=== PATIENT | male | born 1985 | race African-American/Black ===

== ENCOUNTER 2019-05-15 16:05 | Emergency (ER) | payer OTHER ==
[2019-05-15] MEDS ORDERED: Diphtheria,Pertussis(Acell),Tetanus Vaccine 0.5 ML Syringe IM ONE (16:14)
[2019-05-15] MEDS ORDERED: Bacitracin Oint 1 GM U/D Packet TOP ONE (16:14)
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
== END 2019-05-15 17:27 | disposition home or self-care (01) ==
LOC: MW.ED 16:05
DX: S40.212A Abrasion of left shoulder, initial encounter (principal); S90.512A Abrasion, left ankle, initial encounter; Z23 Encounter for immunization; V49.49XA Driver injured in collision with other motor vehicles in traffic accident, initial encounter
CPT/HCPCS: 71045; 71045-26; 72100; 72100-26; 72170; 72170-26; 73030-26-LT; 73030-LT; 73610-26-LT; 73610-LT; 90471; 90715; 99284-25

== ENCOUNTER 2022-12-15 00:12 | Emergency (ER) | payer OTHER, SELFPAY ==
[2022-12-15 00:59] LABS: CARBON DIOXIDE,CO2 27.5 mmol/L (21.0-32.0); POTASSIUM,K 3.4 mmol/L (3.5-5.1)
[2022-12-15] MEDS ORDERED: Iopamidol 755 MG/ML 500 ML Multipack Bottle IVPUSH ONE (01:12)
[2022-12-15] MEDS: Morphine 4 MG/ML Syringe IVPUSH ONE ×2 (02:29→02:31)
== END 2022-12-15 03:38 ==
LOC: MW.ED 00:12
DX: F10.129 Alcohol abuse with intoxication, unspecified (principal); Y90.8 Blood alcohol level of 240 mg/100 ml or more; V89.2XXA Person injured in unspecified motor-vehicle accident, traffic, initial encounter
CPT/HCPCS: 36415; 70450; 71260; 72125; 72128; 72131; 74177; 80053; 80305; 80307; 81003; 83605; 83690; 83735; 84484; 85025; 93005; 99284; Q9967; 93010; J2270

== ENCOUNTER 2022-12-15 04:32 | Emergency (ER) | payer SELFPAY | END 2022-12-15 04:43 | LOC: MW.ED 04:32 | DX: I10 Essential (primary) hypertension (principal) | CPT/HCPCS: 99283 ==

== ENCOUNTER 2023-12-16 19:37 | Emergency (ER) | payer BC ==
[2023-12-16 20:26] LABS: BASOPHILS ABSOLUTE AUTO 0.02 K/uL (0.00-0.20); BASOPHILS PERCENT AUTO 0.3 % (0.0-1.0); EOSINOPHILS ABSOLUTE AUTO 0.19 K/uL (0.00-0.45); EOSINOPHILS PERCENT AUTO 2.6 % (0.0-6.0); HEMATOCRIT 47.9 % (42.0-52.0); HEMOGLOBIN 16.2 g/dL (14.0-18.0); IMMATURE GRAN ABSOLUTE AUTO 0.02 K/uL (0.00-0.05); IMMATURE GRAN PERCENT AUTO 0.3 % (0.0-0.4); LYMPHOCYTES PERCENT AUTO 47.4 % (24.0-44.0); MEAN CORPUSCULAR HEMOGLOBIN 29.9 pg (28.0-32.0); MEAN CORPUSCULAR HGB CONC 33.8 g/dL (32.0-36.0); MEAN CORPUSCULAR VOLUME 88.4 fL (83.0-99.0); MEAN PLATELET VOLUME 10.5 fL (9.4-12.4); MONOCYTES ABSOLUTE AUTO 0.69 K/uL (0.00-0.80); MONOCYTES PERCENT AUTO 9.3 % (0.0-8.0); NEUTROPHILS ABSOLUTE AUTO 2.96 K/uL (1.80-7.70); NEUTROPHILS PERCENT AUTO 40.1 % (41.0-71.0); PLATELET COUNT,PLT 226 K/uL (150-400); RED BLOOD CELL COUNT 5.42 M/uL (4.52-5.90); WHITE BLOOD CELL COUNT,WBC 7.38 K/uL (3.9-11.3)
[2023-12-16 20:39] LABS: CALCIUM 9.7 mg/dL (8.5-10.1); CARBON DIOXIDE,CO2 30.1 mmol/L (21.0-32.0); CREATININE 1.1 mg/dL (0.8-1.3); EST CRCL DRUG DOSING (CG) 107.76 mL/min; POTASSIUM,K 3.6 mmol/L (3.5-5.1)
[2023-12-16] MEDS ORDERED: Aspirin 81 MG Tab.Chew PO ONE (20:42)
[2023-12-16] MEDS ORDERED: Enoxaparin 150 MG/1 ML Syringe SUBCUT ONE (22:31)
[2023-12-17] MEDS ORDERED: Morphine 4 MG/ML Syringe IVPUSH ONE (00:26)
== END 2023-12-17 01:50 ==
LOC: MW.ED 19:37
DX: I24.9 Acute ischemic heart disease, unspecified (principal)
CPT/HCPCS: 36415; 71045; 80048; 84484; 85025; 93005; 96372; 96374; 99285; A9270; J1650; J2270; 93010

== ENCOUNTER 2025-05-09 23:08 | Emergency (ER) | payer BC ==
[2025-05-09 23:34] LABS: BASOPHILS ABSOLUTE AUTO 0.02 K/uL (0.00-0.20); BASOPHILS PERCENT AUTO 0.3 % (0.0-1.0); EOSINOPHILS ABSOLUTE AUTO 0.16 K/uL (0.00-0.45); EOSINOPHILS PERCENT AUTO 2.1 % (0.0-6.0); HEMATOCRIT 44.5 % (42.0-52.0); HEMOGLOBIN 14.7 g/dL (14.0-18.0); IMMATURE GRAN ABSOLUTE AUTO 0.02 K/uL (0.00-0.05); IMMATURE GRAN PERCENT AUTO 0.3 % (0.0-0.4); LYMPHOCYTES ABSOLUTE AUTO 3.32 K/uL (1.00-4.80); MEAN CORPUSCULAR HEMOGLOBIN 28.2 pg (28.0-32.0); MEAN CORPUSCULAR VOLUME 85.2 fL (83.0-99.0); MEAN PLATELET VOLUME 10.3 fL (9.4-12.4); MONOCYTES PERCENT AUTO 9.3 % (0.0-8.0); NEUTROPHILS ABSOLUTE AUTO 3.32 K/uL (1.80-7.70); PLATELET COUNT,PLT 234 K/uL (150-400); RED BLOOD CELL COUNT 5.22 M/uL (4.52-5.90); WHITE BLOOD CELL COUNT,WBC 7.54 K/uL (3.9-11.3)
[2025-05-10 00:04] LABS: ALBUMIN 3.8 g/dL (3.4-5.0); BILIRUBIN TOTAL 0.3 mg/dL (0.2-1.0); CALCIUM 8.4 mg/dL (8.5-10.1); CARBON DIOXIDE,CO2 27.7 mmol/L (21.0-32.0); CREATININE 1.2 mg/dL (0.8-1.3); EST CRCL DRUG DOSING (CG) 97.8 mL/min; POTASSIUM,K 3.8 mmol/L (3.5-5.1); PROTEIN TOTAL,TP 7.6 g/dL (6.4-8.2)
== END 2025-05-10 04:20 | disposition home or self-care (01) ==
LOC: MW.ED 23:08
DX: R07.9 Chest pain, unspecified (principal); I10 Essential (primary) hypertension; E78.5 Hyperlipidemia, unspecified; I25.10 Atherosclerotic heart disease of native coronary artery without angina pectoris; I25.2 Old myocardial infarction; Z95.1 Presence of aortocoronary bypass graft; Z79.899 Other long term (current) drug therapy
CPT/HCPCS: 36415; 71045; 71045-26; 80053; 84484; 85025; 93005; 99283; 99285